=== PATIENT | male | born 1990 | race Caucasian/White ===

== ENCOUNTER 2018-07-06 02:28 | Emergency (ER) | payer SELFPAY, OTHER ==
[2018-07-06] MEDS: KETOROLAC 30 MG INJ IM (03:48)
== END 2018-07-06 05:57 | disposition home or self-care (01) ==
LOC: FTE 02:28
DX: M25.512 Pain in left shoulder (principal); M79.622 Pain in left upper arm; M25.532 Pain in left wrist; F17.210 Nicotine dependence, cigarettes, uncomplicated
CPT/HCPCS: 72100; 72170; 73060; 73090; 73110-LT; 96372; 99284-25